=== PATIENT | female | born 1975 | race Caucasian/White ===

== ENCOUNTER 2019-04-11 14:12 | Outpatient (CLI) | payer OTHER, SELFPAY ==
--- NOTE | 2019-04-11 14:18 | MM_ITS ---
WS: [id number] DIAGNOSTIC BILATERAL DIGITAL MAMMOGRAM WITH CAD HISTORY: breast mass, prior mammoplasty. Patient is unable to feel a LEFT breast nodule today. The pa lpable area felt to last week is no longer present. COMPARISON: 10/02/2017, 07/28/2016 TECHNIQUE: Bilateral craniocaudad, mediolateral oblique, and mediolateral views are submitted. Comput er aided detection utilized. Breast composition: The breasts are heterogeneously dense, which may obscure small masses. Postsurgic al scarring of mammoplasty is noted. Stable findings over several prior examinations. There are benig n calcifications in the LEFT breast. MM/[place] [id number] IMPRESSION: BI-RADS: 2-Benign FOLLOW UP: 1 Year Follow-up
== END 2019-04-11 14:13 | disposition home or self-care (01) ==
LOC: RADSHAW 14:15
PROVIDERS: PCP Nurse Practitioner Family; Visit Provider Nurse Practitioner Family
DX: N63.20 Unspecified lump in the left breast, unspecified quadrant (principal); Z87.898 Personal history of other specified conditions; Z80.3 Family history of malignant neoplasm of breast
CPT/HCPCS: 77066

== ENCOUNTER → 2019-10-06 14:17 | Outpatient (BNVA) | payer OTHER, SELFPAY | PROVIDERS: PCP Nurse Practitioner Family; Visit Provider Nurse Practitioner Family | DX: I10 Essential (primary) hypertension (principal); F41.9 Anxiety disorder, unspecified; Z13.6 Encounter for screening for cardiovascular disorders; E55.9 Vitamin D deficiency, unspecified | CPT/HCPCS: 36415; 80053; 80061; 81003; 82306; 83036; 84443; 85025 ==

== ENCOUNTER → 2020-02-08 11:41 | Outpatient (BNVA) | payer OTHER, SELFPAY | PROVIDERS: PCP Nurse Practitioner Family; Visit Provider Nurse Practitioner Family | DX: Z20.828 Contact with and (suspected) exposure to other viral communicable diseases (principal); J22 Unspecified acute lower respiratory infection; J01.90 Acute sinusitis, unspecified | CPT/HCPCS: 87635 ==

== ENCOUNTER 2020-05-11 11:58 | Outpatient (CLI) | payer OTHER, SELFPAY ==
--- NOTE | 2020-05-11 12:07 | MM_ITS ---
WS: [id number] BILATERAL DIGITAL SCREENING MAMMOGRAPHY WITH CAD CLINICAL INFORMATION: SCREENING HISTORY: Screening mammogram. No current complaints. COMPARISON: April 11, 2019 TECHNIQUE: Bilateral CC and MLO views. FINDINGS: Bilateral breast reduction. Scattered fibroglandular densities bilaterally. A few stable punctate calcifications. No suspicious f ocal mass, asymmetry, calcifications, or architectural distortion. No evidence of malignancy. MM/[place] [id number] IMPRESSION: BI-RADS: 2-Benign FOLLOW UP: 1 Year Follow-up Recommend return to annual screening mammography.
== END 2020-05-11 11:59 | disposition home or self-care (01) ==
PROVIDERS: PCP Nurse Practitioner Family; Visit Provider Nurse Practitioner Family
DX: Z12.31 Encounter for screening mammogram for malignant neoplasm of breast (principal)
CPT/HCPCS: 77067

== ENCOUNTER → 2020-06-27 09:39 | Outpatient (BNVA) | payer OTHER, SELFPAY | PROVIDERS: PCP Nurse Practitioner Family; Visit Provider Nurse Practitioner Family | DX: Z79.899 Other long term (current) drug therapy (principal); R53.83 Other fatigue; Z13.6 Encounter for screening for cardiovascular disorders; M25.561 Pain in right knee; M25.562 Pain in left knee; E55.9 Vitamin D deficiency, unspecified; W57.XXXA Bitten or stung by nonvenomous insect and other nonvenomous arthropods, initial encounter | CPT/HCPCS: 73562; 80053; 80061; 81003; 82306; 83036; 84439; 84443; 84550; 85025; 86038; 86431 ==

== ENCOUNTER → 2020-06-29 09:42 | Outpatient (BNVA) | payer OTHER, SELFPAY | PROVIDERS: PCP Nurse Practitioner Family; Visit Provider Nurse Practitioner Family | DX: Z79.899 Other long term (current) drug therapy (principal); R53.83 Other fatigue; Z13.6 Encounter for screening for cardiovascular disorders; M25.562 Pain in left knee; E55.9 Vitamin D deficiency, unspecified; W57.XXXA Bitten or stung by nonvenomous insect and other nonvenomous arthropods, initial encounter; M25.561 Pain in right knee | CPT/HCPCS: 86000; 86618; 86666; 86757 ==

== ENCOUNTER 2021-06-14 12:39 | Outpatient (CLI) | payer OTHER, SELFPAY ==
--- NOTE | 2021-06-14 13:06 | MM_ITS ---
WS: [id number] VIEWS: MLO and CC views both breasts. 3D digital tomosynthesis is also included in this exam. Comparison made with prior exam of 03/24/2014, 05/04/2015, 07/28/2016, 10/02/2017, 04/11/2019, and 1.. Findings: Questionable new 6 mm nodular density seen in the lower medial quadrant of the right breast at mid de pth. No architectural distortion or suspicious calcification. The left breast is unremarkable and un changed in appearance. Regional ultrasound and compression spot views of the lower medial quadrant of the right breast would be indicated for further workup.Scattered fibroglandular densities MM/[place] [id number] Impression: BI-RADS: 0-Incomplete: Need additional imaging evaluation FOLLOW-UP: See Report This mammogram was also analyzed by the Computer Aided Detection System [employer].
== END 2021-06-14 12:40 | disposition home or self-care (01) ==
LOC: RAD 12:41
PROVIDERS: Visit Provider Nurse Practitioner Family
DX: Z12.31 Encounter for screening mammogram for malignant neoplasm of breast (principal)
CPT/HCPCS: 77063; 77067

== ENCOUNTER 2021-07-09 07:50 | Outpatient (CLI) | payer OTHER, SELFPAY ==
--- NOTE | 2021-07-09 08:05 | MM_ITS ---
WS: [id number] ADDITIONAL VIEWS RIGHT MAMMOGRAM WITH DIGITAL BREAST TOMOSYNTHESIS. RIGHT BREAST ULTRASOUND HISTORY: Additional imaging spiculated nodule RIGHT breast. COMPARISON: 06/14/2021, 05/11/2020 and 04/11/2019. RIGHT MAMMOGRAM: Spot compression views and true ML with digital breast tomosynthesis and SM. Slightly spiculated 6 mm nodule in the anterior to mid RIGHT breast near 5:00. This nodule persists w ith additional views. RIGHT BREAST ULTRASOUND 2-D and color Doppler imaging submitted. At 5:00, 4 cm of the nipple is a hypoechoic mass with both cystic and solid components. Shape and siz e corresponds to the mammographic abnormality. Mass measures 6 x 7 x 5 mm. No increased vascularity. MM/[place] [id number] IMPRESSION: BI-RADS: 4-Suspicious Finding-Biopsy Should Be Considered FOLLOW UP: Biopsy Recommended Ultrasound-guided biopsy recommended RIGHT breast mass at 5:00. Notified SELWYN Ball at 07/09/2021 9:39 AM.
== END 2021-07-09 07:51 | disposition home or self-care (01) ==
PROVIDERS: Visit Provider Nurse Practitioner Family
DX: N63.14 Unspecified lump in the right breast, lower inner quadrant (principal); R92.8 Other abnormal and inconclusive findings on diagnostic imaging of breast
CPT/HCPCS: 76642; 77061

== ENCOUNTER 2021-07-29 12:23 | Outpatient (CLI) | payer OTHER, SELFPAY ==
--- NOTE | 2021-07-29 12:58 | US_ITS ---
WS: [id number] ULTRASOUND-GUIDED RIGHT BREAST BIOPSY HISTORY: Mass at 5:00. COMPARISON: 07/09/2021 and 06/14/2021 Procedure, risks and complications are explained to the patient. Medications are reviewed. Consent is obtained. The mass in the RIGHT breast is localized with ultrasound. Mass localizes to 5:00, 4 cm from the nipp le. Skin is cleansed with ChloraPrep and anesthetized with 1% buffered lidocaine. Small dermatome is made. Under sterile conditions mass is biopsied with a 14-gauge Achieve needle. Multiple core biopsie s are performed. Material placed in formalin and sent to pathology for review. No complications encou ntered. Breast tissue marker (Bard ultrasound enhanced ribbon): Single. Patient left the radiology suite with no complications. Patient is instructed to return to [facility] [place] or [facility] with any concerns. US/[place] [id number] IMPRESSION: 1. Uncomplicated core needle biopsy RIGHT breast mass at 5:00. PATHOLOGY: Benign breast tissue with fibrocystic and columnar cell changes. No malignancy. RECOMMENDATION: Diagnostic RIGHT mammogram in 6 months. Mammographic and ultras ound findings and pathology findings are concordant.
== END 2021-07-29 12:24 | disposition home or self-care (01) ==
PROVIDERS: PCP Nurse Practitioner; Visit Provider Nurse Practitioner
DX: N63.10 Unspecified lump in the right breast, unspecified quadrant (principal)
CPT/HCPCS: 19083; 88305

== ENCOUNTER → 2022-11-07 08:58 | Outpatient (BNVA) | payer OTHER, SELFPAY | PROVIDERS: PCP Nurse Practitioner; Visit Provider Nurse Practitioner | DX: R53.83 Other fatigue; I10 Essential (primary) hypertension | CPT/HCPCS: 80053; 80061; 84443; 85025; 85651; 86140 ==

== ENCOUNTER 2022-12-23 09:13 | Outpatient (CLI) | payer OTHER, SELFPAY ==
--- NOTE | 2022-12-23 09:30 | MM_ITS ---
WS: [id number] DIAGNOSTIC BILATERAL DIGITAL BREAST TOMOSYNTHESIS MAMMOGRAPHY WITH CAD HISTORY: follow up from biopsy COMPARISON: 07/29/2021, 07/09/2021, 06/14/2021 and 05/11/2020 TECHNIQUE: Bilateral craniocaudad, mediolateral oblique, and mediolateral views are submitted with to mosynthesis and SM. Spot compression RIGHT CC. Computer aided detection utilized. Breast composition: There are scattered areas of fibroglandular density. Biopsy clip is noted along t he 3:00 axis of the RIGHT breast at middle depth. The previously biopsied mass is significantly decre ased in size and nearly completely resolved. There are additional calcifications within each breast w hich appear benign. No distortion. IMPRESSION: MM/[place] [id number] BI-RADS: 2-Benign FOLLOW UP: 1 Year Follow-up
== END 2022-12-23 09:14 | disposition home or self-care (01) ==
LOC: RAD 09:14
PROVIDERS: PCP Nurse Practitioner; Visit Provider Nurse Practitioner
DX: N63.15 Unspecified lump in the right breast, overlapping quadrants (principal)
CPT/HCPCS: 77062; G0279

== ENCOUNTER → 2022-12-29 14:14 | Outpatient (BNVA) | payer OTHER, SELFPAY | PROVIDERS: PCP Nurse Practitioner; Visit Provider Nurse Practitioner Family | DX: R50.9 Fever, unspecified (principal) | CPT/HCPCS: 87400; 87426 ==

== ENCOUNTER 2024-02-18 08:44 | Outpatient (CLI) | payer BC, SELFPAY ==
--- NOTE | 2024-02-18 08:48 | MM_ITS ---
WS: [id number] BILATERAL SCREENING DIGITAL TOMOSYNTHESIS MAMMOGRAM WITH CAD HISTORY: SCREENING COMPARISON: 12/23/2022, 07/09/2021 Bilateral CC and MLO views with tomosynthesis and synthetic mammography submitted. Computer aided det ection analyzed. Breast composition: There are scattered areas of fibroglandular density. No suspicious masses, microc alcifications or architectural distortion. MM/MM scr [place] tomosynthesis [id number] IMPRESSION: BI-RADS: 2 - Benign. FOLLOW UP: 1 Year Follow-up
== END 2024-02-18 08:45 | disposition home or self-care (01) ==
LOC: RAD 08:45
PROVIDERS: PCP Nurse Practitioner; Visit Provider Nurse Practitioner Family
DX: Z12.31 Encounter for screening mammogram for malignant neoplasm of breast (principal); R92.323 Mammographic fibroglandular density, bilateral breasts
CPT/HCPCS: 77063; 77067